=== PATIENT | female | born 1965 | race Caucasian/White ===

== ENCOUNTER → 2017-06-06 | Outpatient (CLI) | payer OTHER ==
--- NOTE | 2017-06-06 17:14 | REPMRS ---
Patient History The patient states she had a clinical breast exam in 05/2017. Patient is postmenopausal. Family history of endometrial cancer in mother at age 75. Took hormonal contraceptives for 12 years. Took unspecified hormones for 10 years. Digital Woman Screen Mammo: June 06, 2017 - Exam #: [id number] Bilateral CC and MLO view(s) were taken. Technologist: Medina Long Technologist Prior study comparison: April 16, 2016, digital woman screen mammo performed at [facility]. May 07, 2013, bilateral bilat screen digital mammo, performed at [facility] ([place]). May 08, 2011, bilateral bilat screen digital mammo, performed at [facility] ([facility] FINDINGS: The breast tissue is almost entirely fat. There has been no change in the appearance of the mammogram from the prior studies. There is no interval development of dominant mass, architectural distortion, or clustered microcalcification typical of malignancy. ASSESSMENT: BI-RADS/ACR category 1 mammogram. Negative. Recommendation Routine screening mammogram of both breasts in 1 year (for women over age 40). This mammogram was interpreted with the aid of an FDA-approved computer-aided dectection system. Electronically Signed By: Cameron Sal MD 06/06/17 [id number]
== END ==
LOC: M WHC 14:47
PROVIDERS: ATTEND Nurse Practitioner Family
DX: Z12.31 Encounter for screening mammogram for malignant neoplasm of breast (principal); E65 Localized adiposity; Z78.0 Asymptomatic menopausal state; Z92.0 Personal history of contraception; Z79.891 Long term (current) use of opiate analgesic

== ENCOUNTER → 2018-10-02 | Outpatient (CLI) | payer OTHER ==
--- NOTE | 2018-10-02 17:32 | REPMRS ---
Patient History The patient states she had a clinical breast exam in 09/2018. Family history of endometrial cancer at age 75 in mother. Took hormonal contraceptives for 12 years. Took unspecified hormones for 10 years. 3D TOMOSYNTHESIS WAS PERFORMED. Digital Woman Screen Mammo: October 02, 2018 - Exam #: [id number] Bilateral CC and MLO view(s) were taken. Technologist: Vilma Case, Technologist Prior study comparison: June 06, 2017, digital woman screen mammo performed at [facility]. April 16, 2016, digital woman screen mammo performed at [facility]. FINDINGS: There are scattered fibroglandular densities. There has been no change in the appearance of the mammogram from the prior studies. There is a mild amount of residual fibroglandular tissue which is fairly symmetric. There is no interval development of dominant mass, architectural distortion, or clustered microcalcification suggestive of malignancy. Assessment: BI-RADS/ACR category 1 mammogram. Negative Mammogram. Recommendation Routine screening mammogram in 1 year (for women over age 40). This mammogram was interpreted with the aid of an FDA-approved computer-aided dectection system. Electronically Signed By: Heriberto Isaac MD 10/02/18 0715
== END ==
LOC: M WHC 14:41
PROVIDERS: ATTEND Nurse Practitioner Family
DX: Z12.31 Encounter for screening mammogram for malignant neoplasm of breast (principal); Z80.49 Family history of malignant neoplasm of other genital organs; Z92.0 Personal history of contraception; Z92.29 Personal history of other drug therapy